=== PATIENT | female | born 1950 | race Asian ===

== ENCOUNTER → 2018-12-11 | Day surgery (SDC) | payer MEDICARE, OTHER ==
[~2018-12-11] MED LIST: ALBUTEROL SULFATE 2.5 MG/3 ML NEBU. NEB PRN; ASTA4CAP PO; ATROPINE 0.5 MG/5 ML DISP.SYRIN. IV PRN; CRAN200C2 PO; CYAN10005 PO; GLUC100018 PO; IV RINGERS SOLUTION,LACTATED 1,000 ML IV SCH; LACT1CAP8 PO; LIDOCAINE 2% PF Vial for OR 5 ML VIAL. ONE; MAGN400C PO; NALOXONE 0.4 MG/ML VIAL. IV PRN; OMEG-33 PO; ONDANSETRON PF 4 MG/2 ML VIAL. IV PRN; PEPP30SP PO; PROPOFOL 20 ML IV ONE; UBID30CA14 PO; diphenhydrAMINE 50 MG/ML VIAL IV PRN
[2018-12-11 12:28] VITALS: BP 111/64
== END | disposition home or self-care (01) ==
LOC: SURG 10:10
PROVIDERS: ATTEND Internal Medicine Gastroenterology
DX: K21.9 Gastro-esophageal reflux disease without esophagitis (principal); R10.13 Epigastric pain; E78.5 Hyperlipidemia, unspecified; Z88.6 Allergy status to analgesic agent; Z79.899 Other long term (current) drug therapy; Z90.49 Acquired absence of other specified parts of digestive tract; Z90.710 Acquired absence of both cervix and uterus; Z98.890 Other specified postprocedural states; Z87.19 Personal history of other diseases of the digestive system
CPT/HCPCS: 43239; J2704; J7120; J2001